=== PATIENT | male | born 1980 | race Caucasian/White ===

== ENCOUNTER 2018-07-26 10:12 | Emergency (ER) | payer BC ==
[2018-07-26 10:50] VITALS: BP 124/77
[2018-07-26] MEDS ORDERED: Ketorolac INJ* 60 MG/2 ML VIAL IM ONE (11:04)
--- NOTE | 2018-07-26 11:04 | UC ---
Back Pain HPI - HPI Summary HPI Summary: 37 yo patient, went to hand picker his daughter yesterday and pulled his back , now having pain in his midback. no numbness or tingling, or sob. He states it happens to him once or twice a year usually on his left side, states he had a snowboarding accident as a teenager but he has had MRIs on lumbar spine and they have been normal. Denies dysuria or frequency - History of Current Complaint Chief Complaint: UCBackPain Stated Complaint: BACK PAIN Time Seen by Provider: 07/26/18 10:55 Pain Intensity: 8 - Allergies/Home Medications Allergies/Adverse Reactions: Allergies Allergy/AdvReac Type Severity Reaction Status Date / Time No Known Allergies Allergy Verified 07/26/18 10:50 Home Medications: Home Medications Ibuprofen 800 mg PO ONCE PRN 07/26/18 [History Confirmed 07/26/18] PMH/Surg Hx/FS Hx/Imm Hx Previously Healthy: Yes - Surgical History Surgical History: Yes Surgery Procedure, Year, and Place: nasal repair. wisdom teeth - Family History Known Family History: Positive: Hypertension - Social History Alcohol Use: Occasionally Substance Use Type: Marijuana Smoking Status (MU): Light Every Day Tobacco Smoker Type: Cigarettes Amount Used/How Often: 1/2 ppd Have You Smoked in the Last Year: Yes Household Exposure Type: Cigarettes Review of Systems Musculoskeletal: Arthralgia, Myalgia All Other Systems Reviewed And Are Negative: Yes Physical Exam - Summary Physical Exam Summary: FROMx4, sensory intact, DTR present and symmetrical, sensory intact. Tender to palpation on left lumbar area. Triage Information Reviewed: Yes Appearance: Well-Appearing, No Pain Distress, Well-Nourished Vital Signs: Initial Vital Signs Temp 97.8 F 07/26/18 10:46 Pulse 80 07/26/18 10:46 Resp 18 07/26/18 10:46 BP 124/77 07/26/18 10:46 Pulse Ox 100 07/26/18 10:46 Vital Signs Reviewed: Yes Eyes: Positive: Conjunctiva Clear ENT: Positive: Hearing grossly normal, Pharynx normal Neck: Positive: Supple, Nontender Respiratory: Positive: Chest non-tender, Lungs clear, Normal breath sounds, No respiratory distress Cardiovascular: Positive: RRR, No Murmur, Pulses Normal, Brisk Capillary Refill Abdomen Description: Positive: Nontender, No Organomegaly, Soft, CVA Tenderness (L) Bowel Sounds: Positive: Present Musculoskeletal: Positive: Strength Intact, ROM Intact, No Edema Back Pain Course/Dx - Course Course Of Treatment: 37 yo patient, went to hand picker his daughter yesterday and pulled his back, has lumbar sprain, to start flexeril and ibuprofen prn, referred to PCP for f/u - Differential Dx/Diagnosis Provider Diagnoses: lumbar sprain Discharge - Sign-Out/Discharge Documenting (check all that apply): Patient Departure All imaging exams completed and their final reports reviewed: No Studies - Discharge Plan Condition: Stable Disposition: HOME Referrals: No Primary Care Phys,NOPCP [Primary Care Provider] - [facility] [place]] - Billing Disposition and Condition Condition: STABLE Disposition: Home
== END 2018-07-26 11:15 | disposition home or self-care (01) ==
LOC: UCEAST 10:12
DX: S33.5XXA Sprain of ligaments of lumbar spine, initial encounter (principal); X58.XXXA Exposure to other specified factors, initial encounter; Y92.9 Unspecified place or not applicable; F17.210 Nicotine dependence, cigarettes, uncomplicated; F12.90 Cannabis use, unspecified, uncomplicated
CPT/HCPCS: 99202; G0463

== ENCOUNTER 2018-08-12 10:47 | Emergency (ER) | payer BC ==
[2018-08-12 11:48] VITALS: BP 146/74
[2018-08-12] MEDS ORDERED: Ibuprofen TAB* 400 MG PO ONE (11:50)
--- NOTE | 2018-08-12 11:51 | UC ---
Throat Pain/Nasal Drew HPI - HPI Summary HPI Summary: 37 y/o male presents to the urgent care c/o fever, chills, sore throat since Friday08/10/2018. Pain w/ swallowing is 6/10. He has taking Ibuprofen/Tylenol PO to alleviate symptoms. Last dose taking was at 0400AM. Pt denies cough, SOB, chest pain, abdominal pain, N/V/D. Pt has not gotten the influenza vaccine this year. - History of Current Complaint Chief Complaint: UCRespiratory Stated Complaint: THROAT PAIN Time Seen by Provider: 08/12/18 11:49 Hx Obtained From: Patient Onset/Duration: Gradual Onset, Lasting Days - 3 days, Still Present, Worse Since - today Severity: Moderate Pain Intensity: 6 Pain Scale Used: 0-10 Numeric Cough: None Associated Signs & Symptoms: Positive: Dysphagia, Nasal Discharge - clear, Fever - Epiglottits Risk Factors Epiglottis Risk Factors: Negative - Allergies/Home Medications Allergies/Adverse Reactions: Allergies Allergy/AdvReac Type Severity Reaction Status Date / Time No Known Allergies Allergy Verified 08/12/18 11:47 PMH/Surg Hx/FS Hx/Imm Hx Previously Healthy: Yes - Pt denies PMHX - Surgical History Surgical History: Yes Surgery Procedure, Year, and Place: nasal repair. wisdom teeth - Family History Known Family History: Positive: Cardiac Disease, Hypertension - Social History Occupation: Employed Full-time Lives: With Family Alcohol Use: Occasionally Substance Use Type: Marijuana Substance Use Comment - Amount & Last Used: daily Smoking Status (MU): Light Every Day Tobacco Smoker Type: Cigarettes Amount Used/How Often: 1 PPD Have You Smoked in the Last Year: Yes Household Exposure Type: Cigarettes Review of Systems Constitutional: Fever, Chills, Fatigue, Other - body aches Skin: Negative Eyes: Negative ENT: Sore Throat, Nasal Discharge - clear, Sinus Congestion Respiratory: Negative Cardiovascular: Negative Gastrointestinal: Negative Genitourinary: Negative Motor: Negative Neurovascular: Negative Musculoskeletal: Myalgia Neurological: Headache Psychological: Negative Is Patient Immunocompromised?: No All Other Systems Reviewed And Are Negative: Yes Physical Exam - Summary Physical Exam Summary: VITAL SIGNS: Reviewed. GENERAL: Patient is a well developed and nourished male who is sitting comfortable in the examining table. Patient is not in any acute respiratory distress. HEAD AND FACE: No signs of trauma. No ecchymosis, hematomas or skull depressions. No sinus tenderness. EYES: PERRLA, EOMI x 2, No injected conjunctiva, no nystagmus. No photophobia. EARS: Hearing grossly intact. Ear canals and tympanic membranes are within normal limits. MOUTH: Positive pharynx with erythema, exudates, palatal petechiae. B/L tonsillar enlargement with exudate. Uvula in midline. NECK: Supple, trachea is midline, Positive anterior cervical lymphadenopathy, no JVD, no carotid bruit, no c-spine tenderness, neck with full ROM. No meningeal signs, no Kernig's or brudzinskis signs. CHEST: Symmetric, no tenderness at palpation LUNGS: Clear to auscultation bilaterally. No wheezing or crackles. CVS: Regular rate and rhythm, S1 and S2 present, no murmurs or gallops appreciated. ABDOMEN: Soft, non-tender. No signs of distention. No rebound no guarding, and no masses palpated. Bowel sounds are normal. EXTREMITIES: FROM in all major joints, no edema, no cyanosis or clubbing. NEURO: Alert and oriented x 3. No acute neurological deficits. Speech is normal and follows commands. SKIN: Dry and warm Triage Information Reviewed: Yes Vital Signs: Initial Vital Signs Temp 102.7 F 08/12/18 11:43 Pulse 104 08/12/18 11:43 Resp 16 08/12/18 11:43 BP 146/74 08/12/18 11:43 Pulse Ox 100 08/12/18 11:43 Throat Pain/Nasal Course/Dx - Course Course Of Treatment: 37 y/o male presents to the urgent care c/o fever, chills, sore throat since Friday08/10/2018. Pain w/ swallowing is 6/10. He has taking Ibuprofen/Tylenol PO to alleviate symptoms. Last dose taking was at 0400AM. Pt denies cough, SOB, chest pain, abdominal pain, N/V/D. Pt has not gotten the influenza vaccine this year. Hx obtained. Pt is febrile w/ a Viral syndrome. Pt given Ibuprofen PO to decrease temp by the nurse. pt tolerated well medication and pt felt better. Rapid strep: negative. Influenza A&B ordered: result: negative. Pt Rx ibuprofen PO to alleviates symptoms. Advised on hand washing. Pt advised to rest, increase fluid intake, eat well and avoid strenuous exercise. If symptoms do not improve or worsen advised to return to the urgent care or f/u with PCP for further evaluation and treatment. Pt understood and agreed with plan of care. - Differential Dx/Diagnosis Differential Diagnosis/HQI/PQRI: Influenza, Laryngitis, Pharyngitis, Sinusitis, Tonsillitis, URI Provider Diagnoses: 1- viral syndorme. 2- Elevated BP w/o Hx of HTN Discharge - Sign-Out/Discharge Documenting (check all that apply): Patient Departure - d/c home All imaging exams completed and their final reports reviewed: No - Discharge Plan Condition: Stable Disposition: HOME Prescriptions: Benzonatate CAP* [Tessalon 100 MG CAP*] 100 mg PO TID PRN #21 cap PRN Reason: Cough Ibuprofen TAB* [Motrin TAB* 800 MG] 800 mg PO Q6H PRN #30 tab PRN Reason: Fever Patient Education Materials: Viral Syndrome (ED), Low-Sodium Diet (ED) Forms: *Work Release Referrals: [facility] [place]] - 2 Days Additional Instructions: 1-Please take ibuprofen PO q6-8hrs prn as instructed after meals to alleviate fever, pain and swelling. Increase fluid intake, eat well, rest and avoid strenuous exercise. 2- Please take Tessalon tabs PO to alleviate cough. 3-If symptoms do not improve or worsen please return to the urgent care or f/u with your PCP in 2-3 days for further evaluation and treatment. 4-Your BP is elevated today. please decrease salt in your diet, monitor BP and if it continues to be elevated please f/u with your PCP for further management - Billing Disposition and Condition Condition: STABLE Disposition: Home
== END 2018-08-12 12:44 | disposition home or self-care (01) ==
LOC: UCEAST 10:47
DX: B34.9 Viral infection, unspecified (principal); R03.0 Elevated blood-pressure reading, without diagnosis of hypertension; Z82.49 Family history of ischemic heart disease and other diseases of the circulatory system; Z84.89 Family history of other specified conditions; F17.210 Nicotine dependence, cigarettes, uncomplicated
CPT/HCPCS: 87651; 99212; A9270-GY; G0463

== ENCOUNTER → 2018-08-13 14:17 | Emergency (ER) | payer BC ==
[~2018-08-13 14:17] MED LIST: Acetaminophen TAB* 325 MG PO ONE; Azithromycin IV(*) 500 MG in NS 0.9% 250 ML* 250 ML IVPB ONE; Ibuprofen TAB* 800 MG PO ONE; NS 0.9% 1000 ML* 1,000 ML IV ONE; NS 0.9% 1000 ML* 2,000 ML IV ONE; cefTRIAXone(*) 1 GM in NS 0.9% 50 ML* 50 ML IVPB ONE
--- NOTE | 2018-08-13 17:58 | RAD ---
INDICATION: Cough COMPARISON: None TECHNIQUE: PA and lateral views of the chest were obtained. FINDINGS: The heart and mediastinum are normal in size and contour. There is patchy density overlying the left lung in the AP view. Elsewhere the lungs are grossly clear. There is no evidence of large pleural effusion. Visualized bones are normal for the patient's age. There is no radiographic evidence of free air beneath the diaphragm IMPRESSION: CHEST X-RAY FINDINGS ARE CONSISTENT WITH A LEFT-SIDED PNEUMONIA. FOLLOW-UP CHEST X-RAY AFTER AN APPROPRIATE COURSE OF THERAPY IS ADVISED TO ASCERTAIN RESOLUTION.
[2018-08-13 18:09] LABS: Hematocrit 44 % (42-52); Hemoglobin 15.3 g/dl (14.0-18.0); Mean Corpuscular HGB Conc 35 g/dl (31-36); Mean Corpuscular Hemoglobin 31 pg (27-31); Mean Corpuscular Volume 89 fL (80-94); Red Blood Count 4.94 10^6/ul (4.00-5.40); Red Cell Distribution Width 13 % (10.5-15)
[2018-08-13 18:20] LABS: EGFR Non-African American 84.1 (>60)
[2018-08-13 18:34] LABS: ABS Basophils 0 10^3/ul (0-0.2); ABS Eosinophils 0 10^3/ul (0-0.6); ABS Lymphocytes 0.9 10^3/ul (1.0-4.8); ABS Monocytes 0.6 10^3/ul (0-0.8); ABS Neutrophils 5.4 10^3/ul (1.5-7.7); ABS Nucleated RBC 0 10^3/ul; Eosinophil % 0.1 % (0-6); Lymphocyte % 12.5 % (25-47); Mean Platelet Volume 9.2 um3 (7.4-10.4); Nucleated Red Blood Cells % 0.2; Platelet Count 94 10^3/ul (150-450)
[2018-08-13 19:48] LABS: Urine Appearance Clear; Urine Blood 1+ (Negative); Urine Color Yellow; Urine Ketones Negative (Negative); Urine Protein 1+(30 mg/dL) (Negative); Urine Red Blood Cell Trace(0-2/hpf) (Absent); Urine Urobilinogen Negative (Negative); Urine White Blood Cell Trace(0-5/hpf) (Absent)
[2018-08-13 20:18] VITALS: BP 121/74
--- NOTE | 2018-08-13 20:18 | ED ---
Respiratory - HPI Summary HPI Summary: 37-year-old male presents with fever cough for the past couple days. He states he was seen in urgent care yesterday and had negative flu and strep. He states his symptoms are worsening. Has admits to shortness of breath and cough. He has been using ibuprofen has not been able to keep the fever under control. He admits to headache. Denies any neck stiffness. No photophobia. He admits to sinus congestion and sore throat. No abdominal pain. No nausea no vomiting no diarrhea. does not have a history of asthma. - History of Current Complaint Chief Complaint: EDFluSymptoms Stated Complaint: GENERAL ILLNESS Time Seen by Provider: 08/13/18 17:28 Pain Intensity: 6 - Allergy/Home Medications Allergies/Adverse Reactions: Allergies Allergy/AdvReac Type Severity Reaction Status Date / Time No Known Allergies Allergy Verified 08/13/18 14:33 PMH/Surg Hx/FS Hx/Imm Hx Endocrine/Hematology History: Denies: Hx Anticoagulant Therapy Cardiovascular History: Denies: Hx Myocardial Infarction - Surgical History Surgery Procedure, Year, and Place: nasal repair. wisdom teeth Infectious Disease History: No Infectious Disease History: Denies: Traveled Outside the [place] in Last 30 Days - Family History Known Family History: Positive: Cardiac Disease, Hypertension - Social History Alcohol Use: Occasionally Substance Use Type: Reports: Marijuana Substance Use Comment - Amount & Last Used: daily Smoking Status (MU): Light Every Day Tobacco Smoker Type: Cigarettes Amount Used/How Often: 1 PPD Have You Smoked in the Last Year: Yes Review of Systems Positive: Fever Positive: Sore Throat Negative: Chest Pain Positive: Shortness Of Breath, Cough Negative: Abdominal Pain, Vomiting, Diarrhea, Nausea All Other Systems Reviewed And Are Negative: Yes Physical Exam Triage Information Reviewed: Yes Vital Signs On Initial Exam: Initial Vitals Temp Pulse Resp BP Pulse Ox 100.0 F 104 18 127/82 96 08/13/18 14:29 08/13/18 14:29 08/13/18 14:29 08/13/18 14:29 08/13/18 14:29 Vital Signs Reviewed: Yes Appearance: Positive: Well-Appearing Skin: Positive: Warm, Dry Head/Face: Positive: Normal Head/Face Inspection Eyes: Positive: Normal, EOMI, DEYVI, Conjunctiva Clear ENT: Positive: Normal ENT inspection, Pharynx normal, TMs normal Neck: Positive: Supple, Nontender, No Lymphadenopathy. Negative: Nuchal Rigidity Respiratory/Lung Sounds: Positive: Clear to Auscultation, Breath Sounds Present Cardiovascular: Positive: Normal, RRR Abdomen Description: Positive: Nontender, Soft Bowel Sounds: Positive: Present Musculoskeletal: Positive: Normal Neurological: Positive: Normal Psychiatric: Positive: Normal Diagnostics - Vital Signs Vital Signs Temp Pulse Resp BP Pulse Ox 08/13/18 19:00 29 08/13/18 18:00 34 08/13/18 17:14 5 08/13/18 17:11 103.1 F 98 20 145/90 08/13/18 14:35 102.1 F 08/13/18 14:29 100.0 F 104 18 127/82 96 - Laboratory Lab Results: Lab Results 08/13/18 08/13/18 08/13/18 Range/Units 17:53 17:53 17:53 WBC 7.0 (3.5-10.8) 10^3/ul RBC 4.94 (4.00-5.40) 10^6/ul Hgb 15.3 (14.0-18.0) g/dl Hct 44 (42-52) % MCV 89 (80-94) fL MCH 31 (27-31) pg MCHC 35 (31-36) g/dl RDW 13 (10.5-15) % Plt Count 94 L (150-450) 10^3/ul MPV 9.2 (7.4-10.4) um3 Neut % (Auto) 77.6 (38-83) % Lymph % (Auto) 12.5 L (25-47) % [place] % (Auto) 9.2 H (0-7) % Eos % (Auto) 0.1 (0-6) % Baso % (Auto) 0.6 (0-2) % Absolute Neuts (auto) 5.4 (1.5-7.7) 10^3/ul Absolute Lymphs (auto) 0.9 L (1.0-4.8) 10^3/ul Absolute Monos (auto) 0.6 (0-0.8) 10^3/ul Absolute Eos (auto) 0 (0-0.6) 10^3/ul Absolute Basos (auto) 0 (0-0.2) 10^3/ul Absolute Nucleated RBC 0 10^3/ul Nucleated RBC % 0.2 Hem Pathologist Commnt Pending APTT 32.0 (26.0-36.3) seconds Sodium 132 L (135-145) mmol/L Potassium 3.9 (3.5-5.0) mmol/L Chloride 99 L (101-111) mmol/L Carbon Dioxide 26 (22-32) mmol/L Anion Gap 7 (2-11) mmol/L BUN 11 (6-24) mg/dL Creatinine 1.01 (0.67-1.17) mg/dL Est GFR ( Amer) 101.7 (>60) Est GFR (Non-Af Amer) 84.1 (>60) BUN/Creatinine Ratio 10.9 (8-20) Glucose 140 H (70-100) mg/dL Lactic Acid (0.5-2.0) mmol/L Calcium 9.1 (8.6-10.3) mg/dL Total Bilirubin 0.70 (0.2-1.0) mg/dL AST 20 (13-39) U/L ALT 18 (7-52) U/L Alkaline Phosphatase 64 (34-104) U/L C-Reactive Protein 150.60 H (<8.01) mg/L Total Protein 6.8 (6.4-8.9) g/dL Albumin 4.0 (3.2-5.2) g/dL Globulin 2.8 (2-4) g/dL Albumin/Globulin Ratio 1.4 (1-3) Procalcitonin (<0.6) ng/mL Urine Color Urine Appearance Urine pH (5-9) Ur Specific [place] (1.010-1.030) Urine Protein (Negative) Urine Ketones (Negative) Urine Blood (Negative) Urine Nitrate (Negative) Urine Bilirubin (Negative) Urine Urobilinogen (Negative) Ur Leukocyte Esterase (Negative) Urine WBC (Auto) (Absent) Urine RBC (Auto) (Absent) Urine Bacteria (Absent) Urine Glucose (Negative) Monoscreen (Negative) 08/13/18 08/13/18 08/13/18 Range/Units 17:53 17:53 17:53 WBC (3.5-10.8) 10^3/ul RBC (4.00-5.40) 10^6/ul Hgb (14.0-18.0) g/dl Hct (42-52) % MCV (80-94) fL MCH (27-31) pg MCHC (31-36) g/dl RDW (10.5-15) % Plt Count (150-450) 10^3/ul MPV (7.4-10.4) um3 Neut % (Auto) (38-83) % Lymph % (Auto) (25-47) % [place] % (Auto) (0-7) % Eos % (Auto) (0-6) % Baso % (Auto) (0-2) % Absolute Neuts (auto) (1.5-7.7) 10^3/ul Absolute Lymphs (auto) (1.0-4.8) 10^3/ul Absolute Monos (auto) (0-0.8) 10^3/ul Absolute Eos (auto) (0-0.6) 10^3/ul Absolute Basos (auto) (0-0.2) 10^3/ul Absolute Nucleated RBC 10^3/ul Nucleated RBC % Hem Pathologist Commnt APTT (26.0-36.3) seconds Sodium (135-145) mmol/L Potassium (3.5-5.0) mmol/L Chloride (101-111) mmol/L Carbon Dioxide (22-32) mmol/L Anion Gap (2-11) mmol/L BUN (6-24) mg/dL Creatinine (0.67-1.17) mg/dL Est GFR ( Amer) (>60) Est GFR (Non-Af Amer) (>60) BUN/Creatinine Ratio (8-20) Glucose (70-100) mg/dL Lactic Acid 1.4 (0.5-2.0) mmol/L Calcium (8.6-10.3) mg/dL Total Bilirubin (0.2-1.0) mg/dL AST (13-39) U/L ALT (7-52) U/L Alkaline Phosphatase (34-104) U/L C-Reactive Protein (<8.01) mg/L Total Protein (6.4-8.9) g/dL Albumin (3.2-5.2) g/dL Globulin (2-4) g/dL Albumin/Globulin Ratio (1-3) Procalcitonin 0.4 (<0.6) ng/mL Urine Color Urine Appearance Urine pH (5-9) Ur Specific [place] (1.010-1.030) Urine Protein (Negative) Urine Ketones (Negative) Urine Blood (Negative) Urine Nitrate (Negative) Urine Bilirubin (Negative) Urine Urobilinogen (Negative) Ur Leukocyte Esterase (Negative) Urine WBC (Auto) (Absent) Urine RBC (Auto) (Absent) Urine Bacteria (Absent) Urine Glucose (Negative) Monoscreen Negative (Negative) 08/13/18 Range/Units 19:30 WBC (3.5-10.8) 10^3/ul RBC (4.00-5.40) 10^6/ul Hgb (14.0-18.0) g/dl Hct (42-52) % MCV (80-94) fL MCH (27-31) pg MCHC (31-36) g/dl RDW (10.5-15) % Plt Count (150-450) 10^3/ul MPV (7.4-10.4) um3 Neut % (Auto) (38-83) % Lymph % (Auto) (25-47) % [place] % (Auto) (0-7) % Eos % (Auto) (0-6) % Baso % (Auto) (0-2) % Absolute Neuts (auto) (1.5-7.7) 10^3/ul Absolute Lymphs (auto) (1.0-4.8) 10^3/ul Absolute Monos (auto) (0-0.8) 10^3/ul Absolute Eos (auto) (0-0.6) 10^3/ul Absolute Basos (auto) (0-0.2) 10^3/ul Absolute Nucleated RBC 10^3/ul Nucleated RBC % Hem Pathologist Commnt APTT (26.0-36.3) seconds Sodium (135-145) mmol/L Potassium (3.5-5.0) mmol/L Chloride (101-111) mmol/L Carbon Dioxide (22-32) mmol/L Anion Gap (2-11) mmol/L BUN (6-24) mg/dL Creatinine (0.67-1.17) mg/dL Est GFR ( Amer) (>60) Est GFR (Non-Af Amer) (>60) BUN/Creatinine Ratio (8-20) Glucose (70-100) mg/dL Lactic Acid (0.5-2.0) mmol/L Calcium (8.6-10.3) mg/dL Total Bilirubin (0.2-1.0) mg/dL AST (13-39) U/L ALT (7-52) U/L Alkaline Phosphatase (34-104) U/L C-Reactive Protein (<8.01) mg/L Total Protein (6.4-8.9) g/dL Albumin (3.2-5.2) g/dL Globulin (2-4) g/dL Albumin/Globulin Ratio (1-3) Procalcitonin (<0.6) ng/mL Urine Color Yellow Urine Appearance Clear Urine pH 6.0 (5-9) Ur Specific [place] 1.010 (1.010-1.030) Urine Protein 1+(30 mg/dl) A (Negative) Urine Ketones Negative (Negative) Urine Blood 1+ A (Negative) Urine Nitrate Negative (Negative) Urine Bilirubin Negative (Negative) Urine Urobilinogen Negative (Negative) Ur Leukocyte Esterase Negative (Negative) Urine WBC (Auto) Trace(0-5/hpf) (Absent) Urine RBC (Auto) Trace(0-2/hpf) (Absent) Urine Bacteria Absent (Absent) Urine Glucose Negative (Negative) Monoscreen (Negative) Result Diagrams: 08/13/18 17:53 08/13/18 17:53 Lab Statement: Any lab studies that have been ordered have been reviewed, and results considered in the medical decision making process. - Radiology chest Radiology Interpretation Completed By: Radiologist Summary of Radiographic Findings: IMPRESSION: CHEST X-RAY FINDINGS ARE CONSISTENT WITH A LEFT-SIDED PNEUMONIA. FOLLOW-UP CHEST X-RAY. AFTER AN APPROPRIATE COURSE OF THERAPY IS ADVISED TO ASCERTAIN RESOLUTION. Re-Evaluation - Re-Evaluation First Eval Re-Evaluation Time: 18:30 Change: Improved Comment: feeling better after fluids Disposition - Course Course Of Treatment: 37-year-old male presents with fever cough for the past couple days. He states he was seen in urgent care yesterday and had negative flu and strep. He states his symptoms are worsening. Has admits to shortness of breath and cough. He has been using ibuprofen has not been able to keep the fever under control. He admits to headache. Denies any neck stiffness. No photophobia. He admits to sinus congestion and sore throat. No abdominal pain. No nausea no vomiting no diarrhea. does not have a history of asthma. On exam lungs clear to auscultation. Appears ill. Negative nuchal rigidity. Labs within normal limits. Chest x-ray shows pneumonia. Gave doses azithromycin and Rocephin here. We'll discharge on clarithromycin. Patient understands agrees with plan. - Differential Dx - Cardiopulmonary Differential Diagnoses - Cardiopulmonary: Bronchitis, Influenza, Lower Resp Infection - Diagnoses Provider Diagnoses: Pneumonia Discharge - Sign-Out/Discharge Documenting (check all that apply): Patient Departure - Discharge Plan Condition: Good Disposition: HOME Prescriptions: Albuterol HFA INHALER* [Ventolin HFA Inhaler*] 1 puff INH Q6H PRN #1 mdi PRN Reason: Cough Clarithromycin TAB* [Biaxin 500 MG TAB*] 500 mg PO BID #8 tab guaiFENesin/CODIEN 100MG-10MG* [Robitussin AC 100Mg-10Mg*] 5 ml PO Q6H PRN #100 udc MDD 20ml PRN Reason: Cough Patient Education Materials: Pneumonia (ED) Forms: *Gen. Provider Communication, *Work Release Referrals: No Primary Care Phys,NOPCP [Primary Care Provider] - Additional Instructions: Take cough medication 5ml (1 teaspoon) every 6 hours as needed cough Use inhaler up to two puffs every 4-6 hours for cough take clarithromycin twice a day for 4 days Take Tylenol or ibuprofen for pain and fever every 6 hours follow up with primary within 2 weeks Return to ED if develop any new or worsening symptoms - Billing Disposition and Condition Condition: GOOD Disposition: Home
== END | disposition home or self-care (01) ==
LOC: ED 14:17
DX: J18.9 Pneumonia, unspecified organism (principal); F17.210 Nicotine dependence, cigarettes, uncomplicated
CPT/HCPCS: 36415; 71046; 80053; 81003; 81015; 83605; 84145; 85025; 85060; 85730; 86140; 86308; 87040; 87086; 96365; 99283; A9270-GY; J0456; J0696

== ENCOUNTER 2018-11-01 15:00 | Emergency (ER) | payer BC ==
[2018-11-01 15:39] VITALS: BP 132/83
--- NOTE | 2018-11-01 15:48 | UC ---
Lower Extremity/Ankle HPI - HPI Summary HPI Summary: Fell snow boarding yesterday. [place] a pop. Right lower leg pain, below the knee and in the ankle. Knee was worse yesterday. Ankle is worse today. Was able to walk and snowboard after wards. - History of Current Complaint Stated Complaint: RIGHT KNEE AND ANKLE INJURY Hx Obtained From: Patient Onset/Duration: Sudden Onset, Lasting Days - 1, Worse Since - today Severity Initially: Moderate Severity Currently: Moderate Pain Intensity: 4 Aggravating Factor(s): Standing, Ambulation Alleviating Factor(s): Rest Able to Bear Weight: Yes - Allergies/Home Medications Allergies/Adverse Reactions: Allergies Allergy/AdvReac Type Severity Reaction Status Date / Time No Known Allergies Allergy Verified 11/01/18 15:39 Home Medications: Home Medications Ibuprofen TAB* [Motrin TAB* 800 MG] 600 mg PO Q6H PRN 11/01/18 [History Confirmed 11/01/18] PMH/Surg Hx/FS Hx/Imm Hx Previously Healthy: Yes Other History Of: Negative For: Anticoagulant Therapy - Surgical History Surgical History: Yes Surgery Procedure, Year, and Place: nasal repair - Family History Known Family History: Positive: Cardiac Disease, Hypertension - Social History Occupation: Employed Full-time Lives: With Family Alcohol Use: Occasionally Substance Use Type: Marijuana Substance Use Comment - Amount & Last Used: daily Smoking Status (MU): Heavy Every Day Tobacco Smoker Type: Cigarettes Amount Used/How Often: 1 PPD also vapes daily Have You Smoked in the Last Year: Yes Household Exposure Type: Cigarettes Review of Systems All Other Systems Reviewed And Are Negative: Yes Skin: Positive: Bruising - over the right ankle Musculoskeletal: Positive: Arthralgia - right knee and ankle Is Patient Immunocompromised?: No Physical Exam Triage Information Reviewed: Yes Appearance: Well-Appearing, Well-Nourished, Pain Distress - mild Vital Signs: Initial Vital Signs Temp 98.4 F 11/01/18 15:33 Pulse 79 11/01/18 15:33 Resp 15 11/01/18 15:33 BP 132/83 11/01/18 15:33 Pulse Ox 99 11/01/18 15:33 Vital Signs Reviewed: Yes Eyes: Positive: Conjunctiva Clear Neck exam: Normal Respiratory Exam: Normal Cardiovascular Exam: Normal Musculoskeletal: Positive: ROM Intact - in the right knee with no ligament laxity and negative mcmurrays, ROM Limited @ - Right ankle with swelling and bruising. Tender over the lateral malleolus Neurological Exam: Normal Psychological Exam: Normal Skin Exam: Normal Diagnostics - Radiology No standard instances Radiology Interpretation Completed By: ED Physician Summary of Radiographic Findings: No fracture Lower Extremity Course/Dx - Differential Dx/Diagnosis Differential Diagnosis/HQI/PQRI: Contusion, Fracture (Closed), Sprain, Strain Provider Diagnosis: Ankle sprain, Right knee pain Discharge - Sign-Out/Discharge Documenting (check all that apply): Patient Departure All imaging exams completed and their final reports reviewed: No - Discharge Plan Condition: Stable Disposition: HOME Patient Education Materials: Ankle Sprain (ED), Ankle Stirrup Splint (ED), Knee Pain (ED) Forms: *Work Release Referrals: Wali Anna DO [Primary Care Provider] - - Billing Disposition and Condition Condition: STABLE Disposition: Home
--- NOTE | 2018-11-02 08:58 | UC ---
- EKG/XRAY/CT Xray Comments: wet read correct Course/Dx - Diagnoses Provider Diagnoses: Ankle sprain, Right knee pain Discharge - Sign-Out/Discharge Documenting (check all that apply): Post-Discharge Follow Up All imaging exams completed and their final reports reviewed: Yes - Discharge Plan Condition: Stable Disposition: HOME Patient Education Materials: Ankle Sprain (ED), Ankle Stirrup Splint (ED), Knee Pain (ED) Forms: *Work Release Referrals: Wali Anna DO [Primary Care Provider] - - Billing Disposition and Condition Condition: STABLE Disposition: Home
== END 2018-11-01 16:12 | disposition home or self-care (01) ==
LOC: UCCORT 15:00
DX: S93.402A Sprain of unspecified ligament of left ankle, initial encounter (principal); M25.561 Pain in right knee; W19.XXXA Unspecified fall, initial encounter; Y93.23 Activity, snow (alpine) (downhill) skiing, snowboarding, sledding, tobogganing and snow tubing; Y92.9 Unspecified place or not applicable; F17.210 Nicotine dependence, cigarettes, uncomplicated
CPT/HCPCS: 99212; G0463